=== PATIENT | male | born 1975 | race Caucasian/White ===

== ENCOUNTER 2017-02-23 10:51 | Outpatient (CLI) | payer OTHER | END 2017-02-23 10:52 | disposition home or self-care (01) | DX: Z00.00 Encounter for general adult medical examination without abnormal findings (principal); I10 Essential (primary) hypertension ==

== ENCOUNTER 2017-03-14 17:36 | Emergency (ER) | payer OTHER ==
[2017-03-14] MEDS ORDERED: LIDOCAINE 1% 2 ML VIAL ONE (17:44)
== END 2017-03-14 19:00 | disposition home or self-care (01) ==
DX: S01.81XA Laceration without foreign body of other part of head, initial encounter (principal); W22.8XXA Striking against or struck by other objects, initial encounter; Y92.39 Other specified sports and athletic area as the place of occurrence of the external cause; Y99.0 Civilian activity done for income or pay
CPT/HCPCS: 1040M; 12013; 99282